=== PATIENT | male | born 1950 | race Caucasian/White ===

== ENCOUNTER → 2016-07-24 | Outpatient (CLI) | payer MEDICAID ==
[~2016-07-24] MED LIST: AMITRIPTYLINE50 MG PO; AMOXICILLIN 8751 TAB PO; DOXYCYCLINE 10100 MG PO; FLEXERIL10 MG PO; FUROSEMIDE; IBUPROFEN600 MG PO; LASIX 20MG TABL20 MG PO; LUNESTA2 M1 PO; LUNESTA2 MG PO; LYRICA100 MG PO; LYRICA50 MG PO; MS CONTIN 330 MG/TAB PO; MS CONTIN30 MG PO; MULTIPLE VITAMI1 CAP PO; PREVACID 30MG30 M1 PO; QUALAQUIN324 MG PO; ROXICODONE 55 MG/TAB PO; RT ADVAIR 128 DISKUS IH; [UNRECOGNIZED DRUG - OTHER] NS
== END ==
LOC: COL.CARD 14:00
DX: R55 Syncope and collapse (principal)

== ENCOUNTER → 2018-03-05 | Outpatient (CLI) | payer MEDICARE, MEDICAID | LOC: COL.RAD 13:00 | DX: M19.012 Primary osteoarthritis, left shoulder (principal); M19.011 Primary osteoarthritis, right shoulder; M75.112 Incomplete rotator cuff tear or rupture of left shoulder, not specified as traumatic; M75.111 Incomplete rotator cuff tear or rupture of right shoulder, not specified as traumatic | CPT/HCPCS: J3301; Q9967 ==

== ENCOUNTER 2018-10-13 09:38 | Inpatient (IN) | payer MEDICARE, MEDICAID ==
[~2018-10-13] VITALS: Ht 160 cm; Wt 62.1 kg
--- NOTE | 2018-10-13 11:00 | NUR ---
Patient here by EMS. Alert and oriented x 3. States pain 10/10 to right hip. Pedal pulses intact, cap refill <3 seconds. Portacath to left chest accessed. Concepcion to dependent drainage with juliet urine in place. Hip order set entered per protocol. Medications given per orders. Patient oriented to room. Denies further needs at this time.
--- NOTE | 2018-10-13 11:04 | NUR ---
Notified Will ROBERTSON of ortho consult
[2018-10-13] MEDS ORDERED: AMOXICILLIN 50500 MG PO (11:16)
--- NOTE | 2018-10-13 11:50 | NUR ---
Patient states morphine has not helped with his pain. Notified hospitalist that morphine hasnt helped with pain.
[2018-10-13 12:23] LABS: BASO % 0.4 % (0.0-2.0); GRAN # 4.3 (1.4-6.5); GRAN % 78.1 % (42.2-75.2); HEMOGLOBIN 11.4 g/dl (13.5-18.0); LYMPH # 0.8 (1.2-3.4); LYMPH % 14.8 % (20.0-51.0); MEAN CELL VOLUME 90 fl (80.0-100.0); MEAN CORPUSCULAR HEMOGLOBIN 32 pg (27.0-31.0); MEAN CORPUSCULAR HGB CONC 35 g/dl (33.0-37.0); MONO # 0.4 (0.1-0.6); MONO % 6.5 % (1.7-9.3); PLATELET COUNT 61 K/mm3 (130-400); RED BLOOD COUNT 3.59 M/mm3 (4.20-5.60)
[2018-10-13 12:25] LABS: HEMATOCRIT 32.2 % (42.0-52.0)
[2018-10-13 12:26] VITALS: BP 114/77; PULSE 84
[2018-10-13 12:27] LABS: INR 1.2 (0.8-3.0); PROTHROMBIN TIME 13.4 SECONDS (9.7-12.8)
[2018-10-13 12:37] LABS: ALBUMIN 3.1 gm/dL (3.5-5.0); BILIRUBIN,TOTAL 1.6 mg/dL (0.0-1.0); CALCIUM 7.8 mg/dL (8.4-10.2); CREATININE, serum 0.53 (0.66-1.25); POTASSIUM 3.4 mmol/L (3.4-5.0); TOTAL PROTEIN 5.9 gm/dL (6.4-8.2)
[2018-10-13 12:40] LABS: COLLECTION METHOD CATHETER
[2018-10-13 12:45] LABS: PRE ALBUMIN 8.8 mg/dL (17.6-36.0)
[2018-10-13 13:01] LABS: BUDDING YEAST Present /hpf; MUCOUS Present /lpf; PH 5 (5-8); SQUAMOUS EPITHELIAL 0-2 /hpf; URINE APPEARANCE Hazy; URINE BACTERIA Rare /hpf; URINE BILIRUBIN Negative (NEGATIVE); URINE BLOOD Negative (NEGATIVE); URINE COLOR Yellow; URINE GLUCOSE Negative (NEGATIVE); URINE KETONE Negative (NEGATIVE); URINE LEUKOCYTE ESTERASE 2+ (NEGATIVE); URINE NITRATE Negative (NEGATIVE); URINE PROTEIN(semi-quant) Negative (NEGATIVE); URINE UROBILINOGEN >=4.0 mg/dL (NEGATIVE)
--- NOTE | 2018-10-13 13:03 | NUR ---
Astrid ROBERTSON in to see patient.
--- NOTE | 2018-10-13 14:04 | NUR ---
Notified Astrid ROBERTSON, patient takes MS contin 30mg PO TID, corrected in med requisition.
--- NOTE | 2018-10-13 15:15 | NUR ---
Patient's mother, and [place] caregiver spoke with MCKAY about patient's advance directives. MCKAY reported we do not have anything on file and inquired if patient's PCP had copies. MCKAY contacted Dr Valenzuela's office in [place] and requested copies of those forms. Dr Valenzuela's nurse will fax them.
--- NOTE | 2018-10-13 15:26 | NUR ---
Contacted PCP for updated medication list.
--- NOTE | 2018-10-13 15:40 | NUR ---
Contacted Cassandra in [place], patient will be transfering to [facility] room 5450
[2018-10-13] MEDS ORDERED: CYMBALTA 60MG60 MG PO (15:59)
[2018-10-13] MEDS ORDERED: LOPRESSOR 225 MG/TAB PO (16:00)
[2018-10-13] MEDS ORDERED: PRINIVIL5 MG PO (16:01)
[2018-10-13] MEDS ORDERED: SENOKOT8.6 MG PO (16:22)
[2018-10-13] MEDS ORDERED: XALATAN EYE DROPS OD (16:24)
[2018-10-13] MEDS ORDERED: MOTRIN 800800 MG/TAB PO (16:25)
[2018-10-13] MEDS ORDERED: DESYREL 50MG50 MG PO (16:26)
[2018-10-13] MEDS ORDERED: REMERON 15M15 MG/TA1 PO (16:26)
[2018-10-13] MEDS ORDERED: ACTIGALL 300MG300 MG PO (16:27)
[2018-10-13] MEDS ORDERED: ASPIRIN E.C. 8181 MG PO (16:27)
[2018-10-13] MEDS ORDERED: LIPITOR 40MG TA40 MG PO (16:28)
[2018-10-13] MEDS ORDERED: CIPRO 500MG TA500 MG PO (16:28)
[2018-10-13] MEDS ORDERED: ATIVAN 1MG T1 MG/TAB PO (16:29)
[2018-10-13] MEDS ORDERED: VITAMIN C500 MG PO (16:30)
[2018-10-13] MEDS ORDERED: KLOR-CON 1010 MEQ PO (16:31)
[2018-10-13] MEDS ORDERED: LINZESS145CAP (16:31)
[2018-10-13] MEDS ORDERED: FOLIC ACID 11 MG/TA1 PO (16:32)
[2018-10-13 16:42] VITALS: BP 134/65; PULSE 87; TEMP 98.1
--- NOTE | 2018-10-13 17:26 | NUR ---
Patient in room yelling out stating that he wants someone to get him his morphine. Dr. Young verbal order repeat back for demoral 100mg IM every hour as needed for pain.
--- NOTE | 2018-10-13 18:13 | NUR ---
Patient states he feels much better after demoral injection.
--- NOTE | 2018-10-13 18:46 | NUR ---
Patient resting in bed, respirations even and unlabored. Concepcion maintained to dependent drainage. Port to left chest with fluids infusing via pump. Momo hose to left lower extremity. Ice to left hip. Colostomy to left lower quadrent. Abrasion noted to left forarm and right posterior rib. Denies further needs at this time. Reported off to mold shifter.
--- NOTE | 2018-10-13 21:00 | NUR ---
Pt. laying in bed at this time. Pt. is A&OX3, assessment complete. PORT to lt. chest patent, IV fluids infusing per orders. Pt. has a colostomy to Q. soft formed stool noted in bag. Pt. reports pain at an 8 on pain scale. Will give pain meds per orders. Pt. denies further needs, call light within reach.
[2018-10-13 21:36] VITALS: BP 126/66; PULSE 64; TEMP 98.1
[2018-10-13 23:38] VITALS: BP 120/65; PULSE 69; TEMP 97.7
[2018-10-14] VITALS (17 sets, daily range): BP systolic 100–139; BP diastolic 64–90; PULSE 18–77; TEMP 98–98.6
--- NOTE | 2018-10-14 06:18 | NUR ---
Pt. slept off and on through the night. Pt. given pain meds per request, per orders through the night. Pt. is currently resting with eyes closed, respirations equal and unlabored. Call light within reach.
[2018-10-14 06:54] LABS: BASO % 0.3 % (0.0-2.0); EOS # 0.1 (0.0-0.7); EOS % 1.4 % (0-4.0); GRAN # 2.4 (1.4-6.5); GRAN % 66.8 % (42.2-75.2); HEMATOCRIT 31.8 % (42.0-52.0); HEMOGLOBIN 10.8 g/dl (13.5-18.0); LYMPH # 0.8 (1.2-3.4); LYMPH % 21.8 % (20.0-51.0); MEAN CELL VOLUME 92 fl (80.0-100.0); MEAN CORPUSCULAR HEMOGLOBIN 31 pg (27.0-31.0); MEAN CORPUSCULAR HGB CONC 34 g/dl (33.0-37.0); MEAN PLATELET VOLUME 10.9 fl (7.4-10.4); MONO # 0.3 (0.1-0.6); MONO % 9.4 % (1.7-9.3); RED BLOOD COUNT 3.44 M/mm3 (4.20-5.60); REDCELL DISTRIBUTION WIDTH-CV 15.6 % (11.5-14.5)
[2018-10-14 06:56] LABS: PLATELET COUNT 44 K/mm3 (130-400)
[2018-10-14 06:59] LABS: ALBUMIN 2.8 gm/dL (3.5-5.0); BILIRUBIN,TOTAL 1.5 mg/dL (0.0-1.0); CALCIUM 7.8 mg/dL (8.4-10.2); CREATININE, serum 0.48 (0.66-1.25); POTASSIUM 3.3 mmol/L (3.4-5.0); TOTAL PROTEIN 5.7 gm/dL (6.4-8.2)
--- NOTE | 2018-10-14 10:30 | NUR ---
Restarted patients MS contin from home. He has been having a lot pain this am. We are attempting to get him back on his home regiment. Denies nausea at this time. He has the ELIZABETH hose to his LLE but refused the SCD's because he has neuropathy and pain to BLE. ICE to right hip. IVF's infusing. Getting potassium IV. Encouraged deep breathing exercises. Have attempted to reposition a few times but patient does not tolerate it well and hard to move around. No other changes at this time. Call light within reach.
--- NOTE | 2018-10-14 10:32 | NUR ---
SW met with patient to discuss discharge planning. Patient lives at home with his mother. Patient's PCP is Dr Valenzuela in [place] and he obtains prescription from [facility] in [place]. Patient does have a DPOA and living will. SW obtained copies from patient's PCP and placed them on the chart. Patient uses a cane for ambulation but not other DME is reported. Patient reports he has a [place] Caregiver, Coby, but does not use any home health services. Patient also reports he has been to rehab in [place] after he broke his back and currently gets out patient PT in [place]. SW reported to patient that he will likely need post acute rehab after surgery. SW explained the difference between SNF and [facility]. Patient reports he might be interested in [facility] [place] or [place] [facility] but would like to get through surgery and be seen by PT and OT before deciding where to go. SW will follow up with patient after surgery and he is seen by PT and OT.
--- NOTE | 2018-10-14 14:09 | NUR ---
Platelets transfusing at this time. Explained possible to reactions and to let this nurse know if he starts to have any changes in breathing, increased back pain or chest pain. Patient signed consent. Transfusion protocol followed. Blood checked with Jessica Mcdonald RN. Will continue to monitor.
--- NOTE | 2018-10-14 14:25 | NUR ---
Patient has been getting the platelet transfusion without any issues. No changes in pain or breathing. Pain is better controlled this afternoon with his MS contin. Removed ELIZABETH hose from LLE because patient can not tolerate having it on his leg anymore. Increased the rate of transfusion. No other changes at this time. Call light within reach.
--- NOTE | 2018-10-14 16:10 | NUR ---
Patients transfusion has completed. CBC ordered for 1630 to see where his platelet count is. No other changes at this time.
[2018-10-14 16:58] LABS: BASO % 0.1 % (0.0-2.0); EOS # 0.1 (0.0-0.7); GRAN # 5.1 (1.4-6.5); GRAN % 76.5 % (42.2-75.2); HEMOGLOBIN 10.6 g/dl (13.5-18.0); LYMPH % 14.5 % (20.0-51.0); MEAN CELL VOLUME 93 fl (80.0-100.0); MEAN CORPUSCULAR HEMOGLOBIN 33 pg (27.0-31.0); MEAN CORPUSCULAR HGB CONC 36 g/dl (33.0-37.0); MEAN PLATELET VOLUME 10.6 fl (7.4-10.4); MONO # 0.5 (0.1-0.6); MONO % 7.5 % (1.7-9.3); PLATELET COUNT 56 K/mm3 (130-400); RED BLOOD COUNT 3.21 M/mm3 (4.20-5.60); REDCELL DISTRIBUTION WIDTH-CV 15.3 % (11.5-14.5)
[2018-10-14 17:03] LABS: HEMATOCRIT 29.7 % (42.0-52.0)
--- NOTE | 2018-10-14 19:00 | NUR ---
Patient had a medium sized bowel movement. Changed his colostomy bag. Thought we were going to have to change the appliance but it is fine. Just cleaned the stool up and than he placed a new bag on. His family brought him a couple bags for the night. No other changes at this time. Call light within reach.
--- NOTE | 2018-10-14 20:07 | NUR ---
Pt resting in bed, transfusion of platelets started, shift assessment complete.
--- NOTE | 2018-10-14 20:10 | NUR ---
First 15 minutes of transfusion complete, Pt has no complaints or adverse indications.
[2018-10-15] VITALS (12 sets, daily range): BP systolic 13–135; BP diastolic 36–92; PULSE 56–78; TEMP 97.6–98.2
--- NOTE | 2018-10-15 04:39 | NUR ---
Transfusion of platelets complete, Pt has no adverse effects from the transfusion.
[2018-10-15 06:55] LABS: BASO % 0.5 % (0.0-2.0); EOS # 0.2 (0.0-0.7); EOS % 3.7 % (0-4.0); GRAN # 2.5 (1.4-6.5); HEMOGLOBIN 10.4 g/dl (13.5-18.0); LYMPH % 23.4 % (20.0-51.0); MEAN CELL VOLUME 94 fl (80.0-100.0); MEAN CORPUSCULAR HEMOGLOBIN 32 pg (27.0-31.0); MEAN CORPUSCULAR HGB CONC 34 g/dl (33.0-37.0); MEAN PLATELET VOLUME 10.7 fl (7.4-10.4); MONO # 0.4 (0.1-0.6); MONO % 9.9 % (1.7-9.3); PLATELET COUNT 57 K/mm3 (130-400); RED BLOOD COUNT 3.28 M/mm3 (4.20-5.60); REDCELL DISTRIBUTION WIDTH-CV 15.3 % (11.5-14.5)
[2018-10-15 07:01] LABS: HEMATOCRIT 30.7 % (42.0-52.0)
[2018-10-15 07:13] LABS: ALBUMIN 2.9 gm/dL (3.5-5.0); BILIRUBIN,TOTAL 1.8 mg/dL (0.0-1.0); CALCIUM 8.1 mg/dL (8.4-10.2); CREATININE, serum 0.5 (0.66-1.25); MAGNESIUM 1.8 mg/dL (1.6-2.3); POTASSIUM 3.8 mmol/L (3.4-5.0); TOTAL PROTEIN 5.7 gm/dL (6.4-8.2)
--- NOTE | 2018-10-15 07:36 | NUR ---
Patient c/o pain in lower back, ribs, and right hip. Morphine given at 0630. Rates pain at an 8 out of 10 on the numerical pain scale. Will continue to monitor. Oral care completed. Patient resting in bed. No further needs at this time.
--- NOTE | 2018-10-15 08:58 | NUR ---
Initial visit; Patient states he is in a lot of pain though thanked Over Short And Damage Clerk for offering to keep him in her prayers.
--- NOTE | 2018-10-15 12:53 | NUR ---
Patient is going down for surgery at this time. Pre-op checklist completed. Consent signed and on chart. His family is aware that he is going down for surgery. Chart with patient. No other changes at this time.
--- NOTE | 2018-10-15 13:31 | NUR ---
A&O x4. In significant pain in lower back and right hip all day rating it at an 8 out of 10 on numerical scale. Administered pain meds throughout the day for pain. Currently in surgery. Reported off to primary nurse.
--- NOTE | 2018-10-15 16:20 | NUR ---
Patient is back from surgery. He is having a lot of pain. He is moaning and yelling out. He stated he needs his pain medication. He has 3 sites to his right thigh, dressings are gauze and tegaderm. He is moving his leg a little but is not tolerating being repositioned. Ice to right hip. He wanted the SCD's off, he stated they making his leg shake and increasing his pain. Patient seems to be having spasms to his right leg. No complaints of nausea at this time. Call light within reach. Will continue to monitor.
--- NOTE | 2018-10-15 19:00 | NUR ---
Have been trying to get patient comfortable enough he can rest. Patient stated he wanted to call his mother to just talk. We helped him call and he was asking her to bring his morphine from home. His net web application developer called shortly after very upset because we allowed him to call her. Explained that we did not mean for him to upset her. Coby his net web application developer stated that his mother is upset and trying to find someone to bring her down and give him his pain medications. Spoke with the patient about not taking medications we are not giving him. Explained also that he can not call his mom and be mean to her on the phone and make her feel guilty. Patient was given one additional dose of IV morphine after getting back from surgery due to rating pain at 10 on a 0-10 scale, He continues to rate his pain at 8-10 on a 0-10 scale. No other changes at this time. Call light within reach.
--- NOTE | 2018-10-15 20:00 | NUR ---
REPORT RECEIVED. ASSUMED CARE FOR INVESTOR RELATIONS MANAGER. VS STABLE. ASSESSMENT COMPLETE. RIGHT HIP DRESSING-GAUZE COVERED WITH TEGADERM-SMALL AMOUT OF DRAINAGE PRESENT. C/O PAIN RATED 8/10 TO RIGHT HIP. TEACHING DONE AT THIS TIME ON PROPER ALLIGNMENT OF RIGHT SIDE FOR HIP. REPOSITIONED IN BED WITH SUPPORTING PILLOWS. FRESH ICE PACK APPLIED TO RIGHT HIP. WILL MEDICATED FOR PAIN PER DR ORDERS. DENIES ANY QUESTIONS OR CONCERNS. PROVIDED A LATE MEAL, TOLERATED DIET WELL. CALL CHAUHAN WITHIN REACH. WHEELS LOCKED AND IN LOW POSITION. WILL CONTINUE TO MONITOR.
[2018-10-16 06:28] LABS: BASO % 0.2 % (0.0-2.0); GRAN % 75.4 % (42.2-75.2); LYMPH % 14.4 % (20.0-51.0); MEAN CELL VOLUME 92 fl (80.0-100.0); MEAN CORPUSCULAR HGB CONC 35 g/dl (33.0-37.0); MEAN PLATELET VOLUME 10.4 fl (7.4-10.4); MONO # 0.6 (0.1-0.6); MONO % 9.7 % (1.7-9.3); PLATELET COUNT 76 K/mm3 (130-400); RED BLOOD COUNT 2.85 M/mm3 (4.20-5.60)
[2018-10-16 06:30] LABS: HEMATOCRIT 26.3 % (42.0-52.0); HEMOGLOBIN 9.1 g/dl (13.5-18.0); MEAN CORPUSCULAR HEMOGLOBIN 32 pg (27.0-31.0)
[2018-10-16 06:43] LABS: CREATININE, serum 0.51 (0.66-1.25)
[2018-10-16 07:13] VITALS: BP 102/61; PULSE 73; TEMP 97.6
--- NOTE | 2018-10-16 07:22 | NUR ---
Pt. laying in bed on back with HOB elevated at this time. Breathing is even and nonlabored. Pt. is in pain at this time rating it at a 7/10, dull throbbing pain in right hip radiating to the right knee.
[2018-10-16 12:26] VITALS: BP 109/61; PULSE 66; TEMP 97.6
--- NOTE | 2018-10-16 13:32 | NUR ---
SW met with patient to discuss post acute rehab. Patient is from [place] and would prefer to do rehab at [facility]. Patient's second choice would be [facility]. Patient signed choice form and SW faxed referral to [place].
[2018-10-16 16:05] VITALS: BP 113/70; PULSE 82; TEMP 98
--- NOTE | 2018-10-16 20:00 | NUR ---
Pt. laying in bed. Pt. is A&OX3, assessment complete. PORT to lt chest patent. IV fluids infusing per orders. Pt. reports pain at a 7 on pain scale at this time. Will give pain meds per orders. Dressing to rt. hip CDI. Pt. denies further needs, call light within reach.
[2018-10-16 20:30] VITALS: BP 113/71; PULSE 77; TEMP 97.3
[2018-10-17] VITALS: BP 95/49; PULSE 81; TEMP 97.1
--- NOTE | 2018-10-17 05:50 | NUR ---
Pt. resting in bed with eyes closed, respirations equal and unlabored. PORT to lt. chest remains patent. Pt. remains A&OX3. Concepcion catheter to DD, clear yellow urine noted. Dressing to rt. hip unchanged. Pt. given pain meds this am for pain or 7 on pain scale. Pt. denies further needs.
[2018-10-17 08:40] VITALS: BP 105/55; PULSE 73; TEMP 98.1
[2018-10-17 11:22] VITALS: BP 110/66; PULSE 62; TEMP 97.5
[2018-10-17 11:29] LABS: BASO % 0.4 % (0.0-2.0); EOS # 0.2 (0.0-0.7); EOS % 3.1 % (0-4.0); GRAN # 4.9 (1.4-6.5); GRAN % 68.6 % (42.2-75.2); LYMPH # 1.4 (1.2-3.4); LYMPH % 19.8 % (20.0-51.0); MEAN CELL VOLUME 94 fl (80.0-100.0); MEAN CORPUSCULAR HGB CONC 35 g/dl (33.0-37.0); MEAN PLATELET VOLUME 10.1 fl (7.4-10.4); MONO # 0.6 (0.1-0.6); MONO % 7.8 % (1.7-9.3); PLATELET COUNT 104 K/mm3 (130-400); REDCELL DISTRIBUTION WIDTH-CV 15.9 % (11.5-14.5)
[2018-10-17 11:30] LABS: HEMATOCRIT 26.3 % (42.0-52.0); HEMOGLOBIN 9.1 g/dl (13.5-18.0); MEAN CORPUSCULAR HEMOGLOBIN 33 pg (27.0-31.0)
--- NOTE | 2018-10-17 19:42 | NUR ---
Patient is currently resting in bed at this time, call light in reach. Patient worked with therapy this morning and did walk a ways. He was given prn pain meds throughout the shift reporting pain to his right knee, right hip and back. Patient tolerated diet ok, but did drink a nutrition drink instead of eating his supper tonight. Patient had a visit from [facility] this afternoon and he was in a good mood. Received notice that patient would be going to [facility] on Friday. Patient is aware of this and had requested this. Clostomy bag is in place. Reported off to night nurse.
[2018-10-17 19:44] VITALS: BP 100/57; PULSE 67; TEMP 98.2
--- NOTE | 2018-10-17 20:40 | NUR ---
Pt. laying in bed at this time. Pt. is A&OX3, assessment complete. PORT to lt. chest patent. IV fluids infusing per orders. Dressing to rt. hip CDI. Pt. reports pain at a 7 on pain scale at this time. Will give pain meds per orders. Pt. denies further needs, call light within reach.
[2018-10-18 00:49] VITALS: BP 98/54; PULSE 76; TEMP 97.9
[2018-10-18 04:37] VITALS: BP 102/60; PULSE 72; TEMP 97.9
[2018-10-18 05:43] LABS: BASO % 0.7 % (0.0-2.0); EOS # 0.3 (0.0-0.7); GRAN % 44.4 % (42.2-75.2); LYMPH # 1.8 (1.2-3.4); LYMPH % 39.4 % (20.0-51.0); MEAN CELL VOLUME 95 fl (80.0-100.0); MEAN CORPUSCULAR HGB CONC 34 g/dl (33.0-37.0); MEAN PLATELET VOLUME 9.9 fl (7.4-10.4); MONO # 0.4 (0.1-0.6); MONO % 9.1 % (1.7-9.3); PLATELET COUNT 93 K/mm3 (130-400); RED BLOOD COUNT 2.42 M/mm3 (4.20-5.60); REDCELL DISTRIBUTION WIDTH-CV 16.2 % (11.5-14.5)
[2018-10-18 05:52] LABS: CALCIUM 7.8 mg/dL (8.4-10.2); CREATININE, serum 0.49 (0.66-1.25); POTASSIUM 3.6 mmol/L (3.4-5.0)
[2018-10-18 06:00] LABS: HEMOGLOBIN 7.8 g/dl (13.5-18.0); MEAN CORPUSCULAR HEMOGLOBIN 32 pg (27.0-31.0)
[2018-10-18 08:21] VITALS: BP 117/61; PULSE 72; TEMP 97.5
[2018-10-18 16:44] VITALS: BP 121/67; PULSE 77; TEMP 98
--- NOTE | 2018-10-18 19:00 | NUR ---
Pt up to chair. No distress noted. respirations even and unlabored. Lungs clear to auscultation. Abdomen soft, nontender. BS+. Aquacell dressing to R hip clean, dry and intact. Pt c/o pain 5/10 to BLE. Pt requests pain medication with other nighttime meds. BLE edematous. RLE 2+. LLE 1+. RLE is also reddened. Concepcion catheter to dependent drainage. Output is juliet, clear. No needs noted at this time. Will continue to monitor.
--- NOTE | 2018-10-18 19:55 | NUR ---
Pt back to bed with stand by assist and walker. No distress noted. HS meds given.
[2018-10-18 21:24] LABS: HEMATOCRIT 22.8 % (42.0-52.0); HEMOGLOBIN 7.9 g/dl (13.5-18.0)
--- NOTE | 2018-10-19 00:45 | NUR ---
Pt resting in bed. No distress noted. Pt denies needs at thsi time. will continue to monitor.
--- NOTE | 2018-10-19 03:15 | NUR ---
Report recieved and cares assumed by this RN. Pt resting calmly in bed. Previous shift assessment reviewed et agreed upon. Call light in reach, will monitor.
--- NOTE | 2018-10-19 06:21 | NUR ---
Pt resting in bed, condition unchanged. Pt reported that he had not slept well this shift r/t R hip pain. Pt provided c PRN [place] per request at 0515, c/o 12/14 pain. Pt now resting in bed, eyes closed, resp reg et even. Call light in reach.
[2018-10-19 08:09] LABS: BASO % 0.7 % (0.0-2.0); EOS # 0.2 (0.0-0.7); EOS % 4.6 % (0-4.0); GRAN # 2.4 (1.4-6.5); GRAN % 53.4 % (42.2-75.2); LYMPH # 1.5 (1.2-3.4); LYMPH % 32.7 % (20.0-51.0); MEAN CELL VOLUME 95 fl (80.0-100.0); MEAN CORPUSCULAR HGB CONC 35 g/dl (33.0-37.0); MONO # 0.4 (0.1-0.6); MONO % 7.9 % (1.7-9.3); PLATELET COUNT 108 K/mm3 (130-400); RED BLOOD COUNT 2.41 M/mm3 (4.20-5.60); REDCELL DISTRIBUTION WIDTH-CV 16.7 % (11.5-14.5)
[2018-10-19 08:12] LABS: HEMATOCRIT 22.9 % (42.0-52.0); HEMOGLOBIN 7.9 g/dl (13.5-18.0); MEAN CORPUSCULAR HEMOGLOBIN 33 pg (27.0-31.0)
[2018-10-19 08:21] LABS: CREATININE, serum 0.5 (0.66-1.25); POTASSIUM 3.7 mmol/L (3.4-5.0)
[2018-10-19 08:44] VITALS: BP 106/51; PULSE 70; TEMP 98
--- NOTE | 2018-10-19 09:42 | NUR ---
MCKAY spoke with Shantel from [facility]. She reports they are unable to accept patient. SW met with patient about this and inquired if he would be okay with going to his second choice, [facility]. Patient reports he is okay with his plan. MCKAY will inform [facility] director and confirm that they can take patient today.
--- NOTE | 2018-10-19 10:11 | NUR ---
MCKAY spoke with [facility] director and she reports patient is too functional for [facility]. MCKAY met with patient and he reports he would like M[facility] [place] Patient signed choice form.
[2018-10-19] MEDS ORDERED: ASPI325T6 PO ×2 (10:54→13:07)
[2018-10-19] MEDS ORDERED: LASIX 20MG TABL20 MG PO (12:57)
[2018-10-19] MEDS ORDERED: KLOR-CON 1010 MEQ PO (12:58)
--- NOTE | 2018-10-19 12:58 | NUR ---
Patient has been accepted to [facility] in [place]. They will meet with patient this afternoon and then SW will arrange transportation.
[2018-10-19] MEDS ORDERED: OSCAL 500 TAB500 MG PO (13:05)
[2018-10-19] MEDS ORDERED: DUO-KAPS1 CAP PO (13:05)
[2018-10-19] MEDS ORDERED: AMOXICILLIN 50500 MG PO (13:05)
[2018-10-19] MEDS ORDERED: MIRALAX PA17 GM/Dose PO (13:05)
[2018-10-19 13:13] VITALS: BP 97/52; PULSE 69; TEMP 98.1
--- NOTE | 2018-10-19 14:22 | NUR ---
Patient will discharge today to [facility] for shelter, PT, and OT. SW presented IM to patient. He signed but did not request a copy. MCKAY will faxed discharge orders once they're completed.
--- NOTE | 2018-10-19 14:51 | NUR ---
PT UP TO [facility] FOR THERAPY. PT TO DISCHARGE TODAY TO SNF. FOLLOW UP APPOINTMENTS MADE. SARAH CATHETER DISCONTINUED.
--- NOTE | 2018-10-19 15:44 | NUR ---
called report to SHELLIE @ [facility].
--- NOTE | 2018-10-19 16:05 | NUR ---
PT TO [facility] @ [id number]
== END 2018-10-19 16:06 | DRG 481 ==
LOC: SURG 09:38
PROVIDERS: Hospitalist; Nurse Practitioner Family; Orthopaedic Surgery Sports Medicine; Physician Assistant; ADMIT Family Medicine
PROC: 0QH636Z Insertion of Intramedullary Internal Fixation Device into Right Upper Femur, Percutaneous Approach (ICD-10-PCS; principal; 2018-10-15 14:00)
DX: S72.141A Displaced intertrochanteric fracture of right femur, initial encounter for closed fracture (principal); S22.32XA Fracture of one rib, left side, initial encounter for closed fracture; E44.0 Moderate protein-calorie malnutrition; N39.0 Urinary tract infection, site not specified; K59.2 Neurogenic bowel, not elsewhere classified; I50.32 Chronic diastolic (congestive) heart failure; W18.30XA Fall on same level, unspecified, initial encounter; Z68.22 Body mass index [BMI] 22.0-22.9, adult; B95.2 Enterococcus as the cause of diseases classified elsewhere; I11.0 Hypertensive heart disease with heart failure; J44.9 Chronic obstructive pulmonary disease, unspecified; G62.9 Polyneuropathy, unspecified; E87.6 Hypokalemia; B18.2 Chronic viral hepatitis C; D69.59 Other secondary thrombocytopenia; N31.9 Neuromuscular dysfunction of bladder, unspecified; Z93.3 Colostomy status; D64.9 Anemia, unspecified; S34.101S Unspecified injury to L1 level of lumbar spinal cord, sequela; S32.011S Stable burst fracture of first lumbar vertebra, sequela; X58.XXXS Exposure to other specified factors, sequela; F17.210 Nicotine dependence, cigarettes, uncomplicated
CPT/HCPCS: 99222-AI; 99231-AI; 99232-AI; 99233-AI; 99239; A9284; C1713; J0290; J0690; J1100; J1170; J2175; J2250; J2270; J2405; J2704; J2795; J3010; J3480; J7120; P9035